=== PATIENT | female | born 1940 | race Caucasian/White ===

== ENCOUNTER → 2018-06-14 | Outpatient (CLI) | payer OTHER ==
[~2018-06-14] MED LIST: ASPI81EC; CONEST.3; GLUC500; MULVITMINF; PROACE100 PO
[2018-06-16 15:06] LABS: HPV 16 Negative (Negative); HPV 18 Negative (Negative); HPV OTHER HR TYPES Negative (Negative)
== END | disposition home or self-care (01) ==
LOC: LAB SHORT 17:38 → LAB 17:38
PROVIDERS: Obstetrics & Gynecology Gynecology
DX: Z12.72 Encounter for screening for malignant neoplasm of vagina (principal)
CPT/HCPCS: 87624; G0123

== ENCOUNTER → 2018-09-25 | Outpatient (CLI) | payer OTHER ==
[~2018-09-25] MED LIST changes: +ACET325 PO; +CIPR500 PO; +CLIMARA1 EACH; +CYCL10; +FLUT1DIS2; +LEVSOD50; +METR500 PO; +Pravachol40 MG
[2018-09-29 11:07] LABS: M-SPIKE, % Not Observed % (Not Observed); PROTEIN,TOTAL,URINE 4.7 mg/dL (Not Estab.)
== END | disposition home or self-care (01) ==
LOC: LAB 17:07 → LAB SHORT 17:07 → LAB FUT 09-20 14:05
PROVIDERS: Internal Medicine
DX: Z00.01 Encounter for general adult medical examination with abnormal findings (principal)
CPT/HCPCS: 81050; 84156; 84166

== ENCOUNTER 2018-10-07 13:26 | Inpatient (IN) | payer OTHER ==
[~2018-10-07] VITALS: Ht 165.1 cm; Wt 69.1 kg
[~2018-10-07 13:26] MED LIST changes: -ACET325 PO; -CIPR500 PO; -METR500 PO
--- NOTE | 2018-10-07 15:59 | NUR ---
CALL MADE TO FOR ORDERS CALL MADE TO DR. SARABIA FOR ORDERS AFTER PT ADMISSION.
[2018-10-07 17:20] LABS: BASOPHILS ABSOLUTE AUTO 0.04 K/mm3 (0.00-0.23); BASOPHILS PERCENT AUTO 0 % (0-2); EOSINOPHILS ABSOLUTE AUTO 0.05 K/mm3 (0.00-0.68); EOSINOPHILS PERCENT AUTO 0 % (0-6); Hematocrit 38.8 % (33.0-51.0); IMMATURE GRAN ABSOLUTE AUTO 0.04 K/mm3 (0.00-0.10); IMMATURE GRAN PERCENT AUTO 0 % (0-1); LYMPHOCYTES ABSOLUTE AUTO 3.17 K/mm3 (0.84-5.20); LYMPHOCYTES PERCENT AUTO 24 % (21-46); MONOCYTES ABSOLUTE AUTO 1.14 K/mm3 (0.16-1.47); MONOCYTES PERCENT AUTO 9 % (4-13); Mean Corpuscular HGB Conc 33.5 g/dL (31.5-36.5); Mean Corpuscular Volume 96 fL (80-100); NEUTROPHILS PERCENT AUTO 67 % (41-73); Platelet Count 250 K/mm3 (150-400); RDW Coefficient Variation 13.7 % (11.7-14.2); RDW Standard Deviation 48.4 fL (35.1-46.3); Red Blood Cell Count 4.06 M/mm3 (3.80-5.20); White Blood Cell Count 13.44 K/mm3 (4.00-11.30)
--- NOTE | 2018-10-07 17:28 | NUR ---
PT ADMITTED PT ADMITTED IN STABLE CONDITION WITH VSS. PT ORIENTED TO ROOM. CALL LIGHT IN REACH. IV STARTED. ANTIBIOTICS RUNNING. NO CHANGES IN ASSESSMENT AT THIS TIME. WILL CONTINUE TO MONITOR.
[2018-10-07 17:32] LABS: Alanine Aminotransfer (ALT/SGP 16 U/L (12-78); Albumin, Blood 3.1 g/dL (3.4-5.0); Albumin/Globulin Ratio 0.9 (0.8-1.8); Alk Phos 62 U/L (50-136); Anion Gap 5 mmol/L (6-16); Aspartate Aminotrans (AST/SGOT 22 U/L (12-37); Bilirubin, Total 0.8 mg/dL (0.1-1.0); Blood Urea Nitrogen 7 mg/dL (8-24); Bun/Creatinine Ratio 13.8 (12.0-20.0); CO2, Blood 29 mmol/L (21-32); Calcium, Blood 8.3 mg/dL (8.5-10.1); Chloride, Blood 104 mmol/L (98-108); Creatinine, Blood 0.51 mg/dL (0.40-1.00); Globulin, Blood 3.3 g/dL (2.2-4.0); Glomerular Filtration Rate >60 (60-); Glucose, Blood 104 mg/dL (70-99); Potassium, Blood 3.2 mmol/L (3.5-5.5); Sodium, Blood 138 mmol/L (136-145); Total Protein, Blood 6.4 g/dL (6.4-8.2)
--- NOTE | 2018-10-08 04:51 | NUR ---
SHIFT SUMMARY PT HAD UNEVENTFUL NIGHT. PT DID HAVE ONE EPISODE OF BLOOD PER RECTUM EARLY IN SHIFT. VERY SMALL AMOUNT UNMEASURED IN THE TOILET. NO FURTHER EPISODES FOLLOWING. PT REPORTED MINIMAL ABD PAIN THIS EVENING AT 2/10, MORE PAINFUL WITH PALPATION. DR. JOHNSON IN TO SEE PT THIS EVENING. NO NEW ORDERS TONIGHT. PT REMAINED NPO THROUGHOUT THE NIGHT EXCEPT SIPS OF WATER, ICE CHIPS, AND MEDICATIONS. VSS. OTHERWISE NO ACUTE CHANGES. WILL CONTINUE TO MONITOR.
[2018-10-08 05:09] LABS: BASOPHILS ABSOLUTE AUTO 0.05 K/mm3 (0.00-0.23); BASOPHILS PERCENT AUTO 1 % (0-2); EOSINOPHILS ABSOLUTE AUTO 0.17 K/mm3 (0.00-0.68); EOSINOPHILS PERCENT AUTO 2 % (0-6); Hemoglobin 12.1 g/dL (11.5-16.0); IMMATURE GRAN ABSOLUTE AUTO 0.05 K/mm3 (0.00-0.10); IMMATURE GRAN PERCENT AUTO 1 % (0-1); LYMPHOCYTES ABSOLUTE AUTO 3.07 K/mm3 (0.84-5.20); LYMPHOCYTES PERCENT AUTO 30 % (21-46); MONOCYTES ABSOLUTE AUTO 1.23 K/mm3 (0.16-1.47); MONOCYTES PERCENT AUTO 12 % (4-13); Mean Corpuscular HGB 31.6 pg (26.0-34.0); Mean Corpuscular HGB Conc 33.6 g/dL (31.5-36.5); Mean Corpuscular Volume 94 fL (80-100); Mean Platelet Volume 10.2 fL (9.1-12.4); NEUTROPHILS ABSOLUTE AUTO 5.78 K/mm3 (1.96-9.15); NEUTROPHILS PERCENT AUTO 56 % (41-73); Platelet Count 215 K/mm3 (150-400); RDW Coefficient Variation 13.6 % (11.7-14.2); RDW Standard Deviation 47.2 fL (35.1-46.3); Red Blood Cell Count 3.83 M/mm3 (3.80-5.20); White Blood Cell Count 10.35 K/mm3 (4.00-11.30)
[2018-10-08 05:32] LABS: Alanine Aminotransfer (ALT/SGP 12 U/L (12-78); Albumin, Blood 2.5 g/dL (3.4-5.0); Albumin/Globulin Ratio 0.8 (0.8-1.8); Alk Phos 54 U/L (50-136); Anion Gap 3 mmol/L (6-16); Aspartate Aminotrans (AST/SGOT 14 U/L (12-37); Bilirubin, Total 0.7 mg/dL (0.1-1.0); Blood Urea Nitrogen 4 mg/dL (8-24); Bun/Creatinine Ratio 7.9 (12.0-20.0); CO2, Blood 30 mmol/L (21-32); Calcium, Blood 7.9 mg/dL (8.5-10.1); Chloride, Blood 110 mmol/L (98-108); Creatinine, Blood 0.51 mg/dL (0.40-1.00); Glomerular Filtration Rate >60 (60-); Glucose, Blood 124 mg/dL (70-99); Potassium, Blood 2.9 mmol/L (3.5-5.5); Sodium, Blood 143 mmol/L (136-145); Total Protein, Blood 5.5 g/dL (6.4-8.2)
--- NOTE | 2018-10-08 08:29 | NUR ---
CLEANING UP VASCULAR ACCESS DOCUMENTATION. PATIENT HAS A 20G IN HER LFA FROM YESTERDAY. SHE SAYS SHE NEVER HAD ONE IN HER RFA, ONLY AN ATTEMPT AT ONE. I JUST STARTED A 20G IN HER LAC ALSO. SHE WILL NEED 2 SITES FOR PPN AND MULTIPLE ANTIBIOTICS.
--- NOTE | 2018-10-08 17:56 | NUR ---
SHIFT SUMMARY: PT HAS BEEN A/O X 4 THIS SHIFT WITH MILD TENDERNESS REPORTED TO ABDOMEN. PT REMAINS NPO. IV FLUIDS/ABO HAVE RAN WITH NO ISSUES NOTED. DR Griffin STARTED PT ON PPN WHICH WAS STARTED THIS EVENING AND PT APPEARS TO BE TOLERATING IT WELL. PT AND SON CAME TO VISIT THIS AFTERNOON. SHE IS NOW RESTING IN BED AND WAS REMINDED TO USE CALL LIGHT FOR HELP WHEN NEEDED SINCE SHE IS HOOKED UP TO THE 2 IV LINES AND SHE AGREED TO CALL FOR ASSIST WITHT TOILETING.
--- NOTE | 2018-10-09 04:25 | NUR ---
SUMMARY: PT A/OX4, SPECIFIES NEEDS AND PLEASANT/COOPERATIVE W/CARE. SHE REMAINS NPO X ICE/MEDS W/PPN INFUSING AND CBG'S STABLE. 2ND IV SITE HAS NS INFUSING AT TKO AND IV ABX WERE RECIEVED. SHE HAD TYLENOL PRN FOR TOLERABLE CONTROL OF ARTHRITIC PAIN AND DENIED ABDO DISCOMFORT OR OTHER S/S DISTRESS. PT HAD A BM THIS SHIFT W/O EVIDENCE OF ACTIVE BLEEDING. NO ACUTE CHANGES, VSS AND AFEBRILE. WCTM AND REPORT TO DAY RN.
[2018-10-09 04:59] LABS: Anion Gap 4 mmol/L (6-16); Blood Urea Nitrogen 7 mg/dL (8-24); Bun/Creatinine Ratio 15.9 (12.0-20.0); CO2, Blood 28 mmol/L (21-32); Calcium, Blood 8.1 mg/dL (8.5-10.1); Chloride, Blood 112 mmol/L (98-108); Creatinine, Blood 0.44 mg/dL (0.40-1.00); Glomerular Filtration Rate >60 (60-); Glucose, Blood 124 mg/dL (70-99); Magnesium, Blood 2.1 mg/dL (1.6-2.4); Phosphorus, Blood 2.2 mg/dL (2.5-4.9); Potassium, Blood 3.8 mmol/L (3.5-5.5); Sodium, Blood 144 mmol/L (136-145); Triglycerides 104 mg/dL (30-160)
[2018-10-09 07:01] LABS: BASOPHILS ABSOLUTE AUTO 0.05 K/mm3 (0.00-0.23); BASOPHILS PERCENT AUTO 1 % (0-2); EOSINOPHILS ABSOLUTE AUTO 0.24 K/mm3 (0.00-0.68); EOSINOPHILS PERCENT AUTO 3 % (0-6); Hematocrit 37.4 % (33.0-51.0); Hemoglobin 12.4 g/dL (11.5-16.0); IMMATURE GRAN ABSOLUTE AUTO 0.02 K/mm3 (0.00-0.10); IMMATURE GRAN PERCENT AUTO 0 % (0-1); LYMPHOCYTES ABSOLUTE AUTO 2.47 K/mm3 (0.84-5.20); LYMPHOCYTES PERCENT AUTO 28 % (21-46); MONOCYTES ABSOLUTE AUTO 1.01 K/mm3 (0.16-1.47); MONOCYTES PERCENT AUTO 11 % (4-13); Mean Corpuscular HGB 32.1 pg (26.0-34.0); Mean Corpuscular HGB Conc 33.2 g/dL (31.5-36.5); Mean Platelet Volume 10.9 fL (9.1-12.4); NEUTROPHILS ABSOLUTE AUTO 5.05 K/mm3 (1.96-9.15); NEUTROPHILS PERCENT AUTO 57 % (41-73); Platelet Count 240 K/mm3 (150-400); RDW Coefficient Variation 13.8 % (11.7-14.2); RDW Standard Deviation 49.3 fL (35.1-46.3); Red Blood Cell Count 3.86 M/mm3 (3.80-5.20); White Blood Cell Count 8.84 K/mm3 (4.00-11.30)
[2018-10-09 07:02] LABS: Mean Corpuscular Volume 97 fL (80-100)
--- NOTE | 2018-10-09 17:33 | NUR ---
SHIFT SUMMARY: PT IS A/O X 4 WITH NO C/O PAIN THIS SHIFT. SHE CONTINUES TO SELF AMBULATE TO THE TOILET AND WAS REMINDED TO ASK FOR HELP WITH THE IV POLE WHILE TRANSFERRING AND AGREED. PT CONTINUES ON IV PPN, FLUIDS AND ABO. A NEW PERIPHERAL LINE WAS STARTED ALONG WITH A POWERGLIDE BY RESOURCE RN. DR Griffin STARTED PT ON CLEAR LIQUIDS THIS AFTERNOON AND SO FAR IT HAS BEEN TOLERATED WELL. PT HAS HAD FAMILY AT BEDSIDE MOST OF THE AFTERNOON. PT IS ABLE TO MAKE HER NEEDS KNOWN AND CALLS FOR HELP APPROPRIATELY.
--- NOTE | 2018-10-10 04:29 | NUR ---
SUMMARY: PT A/OX4, CALLS APPROPRIATELY AND IS SBA TO TOILET D/T IV LINES. SHE HAS PPN INFUSING VIA RANDOLPH POWERGLIDE AND D5 W/NS INFUSING TO R.FA IV. IV ABX RECIEVED. PT HAS TOLERATED CLEAR LIQ'S AND DENIES ABDO PAIN/NAUSEA. SHE CONT'S TO HAVE SMALL LOOSE BM'S BUT NO EVIDENCE BLEEDING OBSERVED. PT WAS MEDICATED W/TYLENOL PRN X1 FOR TOLERABLE CONTROL OF ARTHRITIC PAIN AND DENIED COMPLAINTS OTHERWISE. NO ACUTE CHANGES, VSS/AFEBRILE. WCTM AND REPORT TO DAY RN.
[2018-10-10 05:32] LABS: BASOPHILS ABSOLUTE AUTO 0.04 K/mm3 (0.00-0.23); BASOPHILS PERCENT AUTO 0 % (0-2); EOSINOPHILS ABSOLUTE AUTO 0.33 K/mm3 (0.00-0.68); EOSINOPHILS PERCENT AUTO 3 % (0-6); Hematocrit 36.8 % (33.0-51.0); Hemoglobin 12.4 g/dL (11.5-16.0); IMMATURE GRAN ABSOLUTE AUTO 0.03 K/mm3 (0.00-0.10); IMMATURE GRAN PERCENT AUTO 0 % (0-1); LYMPHOCYTES ABSOLUTE AUTO 3.19 K/mm3 (0.84-5.20); LYMPHOCYTES PERCENT AUTO 32 % (21-46); MONOCYTES ABSOLUTE AUTO 1.25 K/mm3 (0.16-1.47); MONOCYTES PERCENT AUTO 13 % (4-13); Mean Corpuscular HGB 31.9 pg (26.0-34.0); Mean Corpuscular HGB Conc 33.7 g/dL (31.5-36.5); Mean Corpuscular Volume 95 fL (80-100); Mean Platelet Volume 10.2 fL (9.1-12.4); NEUTROPHILS ABSOLUTE AUTO 5.15 K/mm3 (1.96-9.15); NEUTROPHILS PERCENT AUTO 52 % (41-73); Platelet Count 247 K/mm3 (150-400); RDW Coefficient Variation 13.8 % (11.7-14.2); RDW Standard Deviation 48.1 fL (35.1-46.3); Red Blood Cell Count 3.89 M/mm3 (3.80-5.20); White Blood Cell Count 9.99 K/mm3 (4.00-11.30)
[2018-10-10 06:03] LABS: Anion Gap 4 mmol/L (6-16); Blood Urea Nitrogen 8 mg/dL (8-24); Bun/Creatinine Ratio 21.1 (12.0-20.0); CO2, Blood 27 mmol/L (21-32); Calcium, Blood 8.1 mg/dL (8.5-10.1); Chloride, Blood 112 mmol/L (98-108); Creatinine, Blood 0.38 mg/dL (0.40-1.00); Glomerular Filtration Rate >60 (60-); Glucose, Blood 107 mg/dL (70-99); Magnesium, Blood 1.9 mg/dL (1.6-2.4); Phosphorus, Blood 2.7 mg/dL (2.5-4.9); Potassium, Blood 3.7 mmol/L (3.5-5.5); Sodium, Blood 143 mmol/L (136-145)
[2018-10-10] MEDS ORDERED: ACET325 PO (10:28)
[2018-10-10] MEDS ORDERED: CIPR500 PO (10:29)
[2018-10-10] MEDS ORDERED: METR500 PO (10:30)
--- NOTE | 2018-10-10 11:39 | NUR ---
PT DCD HOME WITH AND SON. ALL MEDS AND INSTRUCTIONS REVIEWED WITH PT WHO VERBALIZED AN UNDERSTANDING. POWER GLIDE AND PERIPHERAL LINES WERE DCD WNL. PT TOOK ALL PERSONAL BELONGINGS WITH HER BUT FORGOT HER DC PACKET ON THE BED. PT WAS CALLED AND LEFT A MESSAGE THAT IT WILL BE AT THE [facility] DESK FOR HER TO TRAFFIC CONTROL FLAGGER. ALL MED ORDERS WERE FAXED TO [facility] PER PT REQUEST. PT STABLE UPON DC.
[2018-10-10 14:24] LABS: Adenovirus F 40/41 Not Detected (NOT DETECT); Astrovirus Not Detected (NOT DETECT); Campylobacter Sp Not Detected (NOT DETECT); Cryptosporidium Not Detected (NOT DETECT); Cyclospora Cayetanensis Not Detected (NOT DETECT); E. Coli O157 Not Detected (NOT DETECT); Entamoeba Histolytica Not Detected (NOT DETECT); Enteroaggregative E. coli-EAEC Not Detected (NOT DETECT); Enteropathogenic E. coli-EPEC Not Detected (NOT DETECT); Enterotoxigenic E. coli-ETEC Not Detected (NOT DETECT); Giardia Lamblia Not Detected (NOT DETECT); Norovirus GI/GII Not Detected (NOT DETECT); Plesiomonas Shigelloides Not Detected (NOT DETECT); Rotavirus A Not Detected (NOT DETECT); Salmonella Sp Not Detected (NOT DETECT); Sapovirus Not Detected (NOT DETECT); Shiga Toxin-prod E. coli-STEC Not Detected (NOT DETECT); Shigella/Enteroin E. coli-EIEC Not Detected (NOT DETECT); Vibrio Cholerae Not Detected (NOT DETECT); Vibrio Sp Not Detected (NOT DETECT); Yersinia Enterocolitica Not Detected (NOT DETECT)
== END 2018-10-10 11:34 | disposition home or self-care (01) | DRG 921 ==
LOC: CT 13:26 → MEDS 15:29 → ENPENDDIS 10-10 09:55 → MEDS 10-10 11:34
PROVIDERS: ADMIT Student in an Organized Health Care Education/Training Program
DX: K91.71 Accidental puncture and laceration of a digestive system organ or structure during a digestive system procedure (principal); K57.30 Diverticulosis of large intestine without perforation or abscess without bleeding; E78.5 Hyperlipidemia, unspecified; E03.9 Hypothyroidism, unspecified; G43.909 Migraine, unspecified, not intractable, without status migrainosus; M54.9 Dorsalgia, unspecified; G89.29 Other chronic pain; D72.829 Elevated white blood cell count, unspecified; E87.6 Hypokalemia; Z66 Do not resuscitate; Y83.8 Other surgical procedures as the cause of abnormal reaction of the patient, or of later complication, without mention of misadventure at the time of the procedure; Y73.0 Diagnostic and monitoring gastroenterology and urology devices associated with adverse incidents; Z79.82 Long term (current) use of aspirin; Z79.890 Hormone replacement therapy; Z79.899 Other long term (current) drug therapy; Z88.5 Allergy status to narcotic agent
CPT/HCPCS: 0097U; 36415; 74176; 74177; 80048; 80053; 82947; 83735; 84100; 84478; 85025; A9270; C1751; J0744; J2704; J7042; J7050; J7120; Q9967

== ENCOUNTER → 2021-08-17 | Outpatient (CLI) | payer OTHER ==
[~2021-08-17] MED LIST changes: +ACET325 PO; +CIPR500 PO; +METR500 PO
[2021-08-17 16:09] LABS: BASOPHILS ABSOLUTE AUTO 0.05 K/mm3 (0.00-0.23); BASOPHILS PERCENT AUTO 1 % (0-2); EOSINOPHILS PERCENT AUTO 1 % (0-6); Hematocrit 38.7 % (33.0-51.0); Hemoglobin 12.9 g/dL (11.5-16.0); IMMATURE GRAN ABSOLUTE AUTO 0.04 K/mm3 (0.00-0.10); IMMATURE GRAN PERCENT AUTO 0 % (0-1); LYMPHOCYTES ABSOLUTE AUTO 2.29 K/mm3 (0.84-5.20); LYMPHOCYTES PERCENT AUTO 21 % (21-46); MONOCYTES ABSOLUTE AUTO 1.34 K/mm3 (0.16-1.47); MONOCYTES PERCENT AUTO 12 % (4-13); Mean Corpuscular HGB 31.9 pg (26.0-34.0); Mean Corpuscular HGB Conc 33.3 g/dL (31.5-36.5); Mean Corpuscular Volume 96 fL (80-100); Mean Platelet Volume 10.1 fL (9.1-12.4); NEUTROPHILS ABSOLUTE AUTO 7.18 K/mm3 (1.96-9.15); NEUTROPHILS PERCENT AUTO 65 % (41-73); Platelet Count 271 K/mm3 (150-400); RDW Coefficient Variation 14.1 % (11.7-14.2); RDW Standard Deviation 50.1 fL (35.1-46.3); Red Blood Cell Count 4.05 M/mm3 (3.80-5.20)
[2021-08-17 16:18] LABS: Albumin/Globulin Ratio 0.8 (0.8-1.8); Bilirubin, Total 0.4 mg/dL (0.1-1.0); Calcium, Blood 8.9 mg/dL (8.5-10.1); Creatinine, Blood 0.6 mg/dL (0.40-1.00); Globulin, Blood 3.7 g/dL (2.2-4.0); Total Protein, Blood 6.7 g/dL (6.4-8.2)
== END ==
LOC: LAB SHORT 16:04
PROVIDERS: General Practice
DX: R05.1 Acute cough (principal)
CPT/HCPCS: 80053; 85025

== ENCOUNTER 2022-09-04 11:44 | Emergency (ER) | payer OTHER ==
[~2022-09-04] VITALS: Ht 165.1 cm; Wt 70.8 kg
[2022-09-04] MEDS ORDERED: DULOXETINE HCL60 M1 PO (12:02)
[2022-09-04] MEDS ORDERED: HYDROCODONE-AC1 EA19 PO (12:02)
[2022-09-04 12:32] LABS: BASOPHILS ABSOLUTE AUTO 0.05 K/mm3 (0.00-0.23); BASOPHILS PERCENT AUTO 1 % (0-2); EOSINOPHILS ABSOLUTE AUTO 0.22 K/mm3 (0.00-0.68); EOSINOPHILS PERCENT AUTO 3 % (0-6); Hematocrit 38.7 % (33.0-51.0); Hemoglobin 13.2 g/dL (11.5-16.0); IMMATURE GRAN ABSOLUTE AUTO 0.01 K/mm3 (0.00-0.10); IMMATURE GRAN PERCENT AUTO 0 % (0-1); LYMPHOCYTES PERCENT AUTO 43 % (21-46); MONOCYTES ABSOLUTE AUTO 0.95 K/mm3 (0.16-1.47); MONOCYTES PERCENT AUTO 12 % (4-13); Mean Corpuscular HGB 32.4 pg (26.0-34.0); Mean Corpuscular HGB Conc 34.1 g/dL (31.5-36.5); Mean Corpuscular Volume 95 fL (80-100); Mean Platelet Volume 9.5 fL (9.1-12.4); NEUTROPHILS ABSOLUTE AUTO 3.32 K/mm3 (1.96-9.15); NEUTROPHILS PERCENT AUTO 42 % (41-73); Platelet Count 234 K/mm3 (150-400); RDW Coefficient Variation 15.7 % (11.7-14.2); RDW Standard Deviation 54.9 fL (35.1-46.3); Red Blood Cell Count 4.08 M/mm3 (3.80-5.20); White Blood Cell Count 7.95 K/mm3 (4.00-11.30)
[2022-09-04 12:46] LABS: Albumin, Blood 3.1 g/dL (3.4-5.0); Bilirubin, Total 0.4 mg/dL (0.1-1.0); Bun/Creatinine Ratio 22.4 (12.0-20.0); Calcium, Blood 8.4 mg/dL (8.5-10.1); Creatinine, Blood 0.54 mg/dL (0.40-1.00); Globulin, Blood 3.1 g/dL (2.2-4.0); Potassium, Blood 3.8 mmol/L (3.5-5.5); Total Protein, Blood 6.2 g/dL (6.4-8.2)
[2022-09-04 14:00] VITALS: BP 157/84
== END 2022-09-04 14:30 | disposition home or self-care (01) ==
LOC: ER 11:44
PROVIDERS: Emergency Medicine
DX: S01.01XA Laceration without foreign body of scalp, initial encounter (principal); E78.5 Hyperlipidemia, unspecified; E03.9 Hypothyroidism, unspecified; W18.30XA Fall on same level, unspecified, initial encounter; Z79.890 Hormone replacement therapy; Z79.82 Long term (current) use of aspirin; Z88.5 Allergy status to narcotic agent
CPT/HCPCS: 12001; 70450; 72125; 80053; 85025; 90471; 90714; 90715; 93005; 93010; 99284-25; A9270

== ENCOUNTER 2022-12-24 09:20 | Inpatient (IN) | payer OTHER ==
[~2022-12-24] VITALS: Ht 162.6 cm; Wt 69.8 kg
[~2022-12-24 09:20] MED LIST changes: +DULOXETINE HCL60 M1 PO; +HYDROCODONE-AC1 EA19 PO; +PRAV20 PO; -Pravachol40 MG
[2022-12-24 09:44] LABS: Hematocrit 40.7 % (33.0-51.0); Hemoglobin 13.5 g/dL (11.5-16.0); Mean Corpuscular HGB 31.4 pg (26.0-34.0); Mean Corpuscular HGB Conc 33.2 g/dL (31.5-36.5); Mean Corpuscular Volume 95 fL (80-100); Mean Platelet Volume 9.8 fL (9.1-12.4); Platelet Count 277 K/mm3 (150-400); RDW Coefficient Variation 14.1 % (11.7-14.2); RDW Standard Deviation 49.1 fL (35.1-46.3); White Blood Cell Count 9.57 K/mm3 (4.00-11.30)
[2022-12-24 10:04] LABS: BASOPHILS PERCENT MAN 0 % (0-2); EOSINOPHILS ABSOLUTE MAN 0.28 K/mm3 (0.00-0.68); EOSINOPHILS PERCENT MAN 3 % (0-6); LYMPHOCYTES % ATYPICAL MANUAL 1 % (0-0); LYMPHOCYTES ABSOLUTE MAN 4.11 K/mm3 (0.84-5.20); LYMPHOCYTES PERCENT MAN 42 % (21-46); MONOCYTES ABSOLUTE MAN 0.86 K/mm3 (0.16-1.47); MONOCYTES PERCENT MAN 9 % (4-13); SEG NEUTROPHILS PERCENT MAN 45 % (41-73); TOTAL CELLS COUNTED 100
[2022-12-24 10:18] LABS: Bun/Creatinine Ratio 19.2 (12.0-20.0); Calcium, Blood 8.7 mg/dL (8.5-10.1); Creatinine, Blood 0.57 mg/dL (0.40-1.00); Potassium, Blood 3.7 mmol/L (3.5-5.5)
[2022-12-24] MEDS ORDERED: NAPROXEN500 MG PO (11:24)
[2022-12-24 15:23] VITALS: BP 128/67
--- NOTE | 2022-12-24 19:39 | NUR ---
SHIFT SUMMARY PAIN MANAGED WITH FENTANYL. PT HAS BEEN ALERT AND ORIENTED. PUREWICK IN PLACE. FAMILY PRESENT THIS EVENING FOR SUPPORT. REPORT GIVEN TO DARINEL RN, PT RESTING IN BED AND ASKING FOR PAIN MEDICATION AT TIME OF REPORT.
--- NOTE | 2022-12-24 19:41 | NUR ---
PT ARRIVED TO THE ROOM AT APPROXIMATELY 1520.
[2022-12-24 19:49] VITALS: BP 133/77
--- NOTE | 2022-12-24 19:50 | NUR ---
SHIFT SUMMARY PT IS AWAITING SURGERY TOMORROW. PAIN MANAGED WITH FENTANYL. NO CHANGES TO REPORT SINCE ARRIVAL TO THE ROOM.
[2022-12-25 03:53] VITALS: BP 147/71
[2022-12-25 04:51] LABS: BASOPHILS ABSOLUTE AUTO 0.05 K/mm3 (0.00-0.23); BASOPHILS PERCENT AUTO 1 % (0-2); EOSINOPHILS ABSOLUTE AUTO 0.21 K/mm3 (0.00-0.68); EOSINOPHILS PERCENT AUTO 2 % (0-6); Hematocrit 39.1 % (33.0-51.0); Hemoglobin 12.9 g/dL (11.5-16.0); IMMATURE GRAN ABSOLUTE AUTO 0.02 K/mm3 (0.00-0.10); IMMATURE GRAN PERCENT AUTO 0 % (0-1); LYMPHOCYTES ABSOLUTE AUTO 2.79 K/mm3 (0.84-5.20); LYMPHOCYTES PERCENT AUTO 26 % (21-46); MONOCYTES ABSOLUTE AUTO 1.21 K/mm3 (0.16-1.47); MONOCYTES PERCENT AUTO 11 % (4-13); Mean Corpuscular HGB 31.2 pg (26.0-34.0); Mean Corpuscular Volume 94 fL (80-100); Mean Platelet Volume 9.9 fL (9.1-12.4); NEUTROPHILS ABSOLUTE AUTO 6.61 K/mm3 (1.96-9.15); NEUTROPHILS PERCENT AUTO 61 % (41-73); Platelet Count 223 K/mm3 (150-400); RDW Coefficient Variation 14.2 % (11.7-14.2); RDW Standard Deviation 49.1 fL (35.1-46.3); Red Blood Cell Count 4.14 M/mm3 (3.80-5.20); White Blood Cell Count 10.89 K/mm3 (4.00-11.30)
[2022-12-25 05:38] LABS: Bun/Creatinine Ratio 18.3 (12.0-20.0); Calcium, Blood 8.7 mg/dL (8.5-10.1); Creatinine, Blood 0.76 mg/dL (0.40-1.00); Potassium, Blood 3.8 mmol/L (3.5-5.5)
--- NOTE | 2022-12-25 05:49 | NUR ---
SHIFT SUMMARY VSS. PT SLEPT ON AND OFF T/O THE NIGHT. LLE REMAINS SHORTENED AND EXTERNALLY ROTATED. PULSE AND SENSATION REMAINS INTACT. MEDICATED FOR PAIN WITH V FENT. REQUIRED AN EXTRA ONE TIME DOSE OF FENT AFTER REPOSITIONING. PURE WICK IN PLACE, LEAKED AND REQUIRED BED CHANGE. NO OTHER ACUTE EVENT SNOTED. WIPE DOWN COMPLETE. PLAN FOR SURGERY TODAY
[2022-12-25 07:32] VITALS: BP 140/67
[2022-12-25] MEDS ORDERED: HYDR1TAB94 PO (09:14)
[2022-12-25] MEDS ORDERED: GEMTESA75 MG PO (09:14)
[2022-12-25 14:53] VITALS: BP 145/79
--- NOTE | 2022-12-25 16:42 | NUR ---
SHIFT SUMMARY PT A&OX4, VSS/RA, LATESHA PO, VOIDING/PUREWICK, BEDREST/REPOSITIONS WITH ASSIST, PAIN MANAGED PER EMAR, 18G LFA/IVF AT 125 MLS/HR. PLAN FOR NPO MIDNIGHT AND SURGERY 799. REPORT PROVIDED TO AIDAN العلي.
--- NOTE | 2022-12-25 17:15 | NUR ---
THIS NURSE RECIEVED REPORT FROM LEONORA العلي. THIS NURSE IS NOW ASSUMING CARE.
[2022-12-25 19:26] VITALS: BP 123/71
[2022-12-26] VITALS (14 sets, daily range): BP systolic 125–156; BP diastolic 57–81
[2022-12-26 04:48] LABS: Hematocrit 38.7 % (33.0-51.0); Hemoglobin 12.9 g/dL (11.5-16.0); Mean Corpuscular HGB 31.5 pg (26.0-34.0); Mean Corpuscular HGB Conc 33.3 g/dL (31.5-36.5); Mean Corpuscular Volume 94 fL (80-100); Mean Platelet Volume 10.1 fL (9.1-12.4); Platelet Count 209 K/mm3 (150-400); RDW Coefficient Variation 14.4 % (11.7-14.2); RDW Standard Deviation 50.1 fL (35.1-46.3); White Blood Cell Count 11.15 K/mm3 (4.00-11.30)
[2022-12-26 05:14] LABS: Calcium, Blood 8.2 mg/dL (8.5-10.1); Creatinine, Blood 0.76 mg/dL (0.40-1.00); Potassium, Blood 4.1 mmol/L (3.5-5.5)
--- NOTE | 2022-12-26 06:03 | NUR ---
SHIFT SUMMARY PT IS HERE AFTER A GLF AND A RIGHT FEMORAL NECK FX. SHE HAS BEEN NPO SINCE MIDNIGHT FOR A PROCEDURE TODAY. PT'S VITAL SIGNS HAVE BEEN STABLE THROUGHOUT THE SHIFT AND THE PT HAS BEEN RESTING COMFORTABLY FOR MOST OF THE SHIFT. PT DID COMPLAIN OF PAIN ALONG WITH SHAKING LATER IN THE SHIFT. PT'S PAIN MEDICATED PER EMAR.
--- NOTE | 2022-12-26 19:21 | NUR ---
SHIFT SUMMARY POD0 R PETRA, A/OX4, VSS, TOLERATIN PO, PAIN WELL MANAGED, AMBULATING USING FWW/GB WITH MINIMAL SBA, SPINAL ANESTHESIA AND HAS REGAINED FULL BASELINE SENSATION, ABLE TO VOID POST OP. NO ACUTE EVENTS THIS SHIFT, CALL LIGHT IN REACH.
[2022-12-27 00:03] VITALS: BP 114/63
[2022-12-27 04:06] VITALS: BP 119/58
[2022-12-27 05:15] LABS: BASOPHILS ABSOLUTE AUTO 0.05 K/mm3 (0.00-0.23); BASOPHILS PERCENT AUTO 0 % (0-2); EOSINOPHILS ABSOLUTE AUTO 0.37 K/mm3 (0.00-0.68); EOSINOPHILS PERCENT AUTO 3 % (0-6); Hematocrit 34.5 % (33.0-51.0); Hemoglobin 11.6 g/dL (11.5-16.0); IMMATURE GRAN ABSOLUTE AUTO 0.04 K/mm3 (0.00-0.10); IMMATURE GRAN PERCENT AUTO 0 % (0-1); LYMPHOCYTES ABSOLUTE AUTO 2.39 K/mm3 (0.84-5.20); LYMPHOCYTES PERCENT AUTO 20 % (21-46); MONOCYTES ABSOLUTE AUTO 1.44 K/mm3 (0.16-1.47); MONOCYTES PERCENT AUTO 12 % (4-13); Mean Corpuscular HGB 31.4 pg (26.0-34.0); Mean Corpuscular HGB Conc 33.6 g/dL (31.5-36.5); Mean Corpuscular Volume 93 fL (80-100); Mean Platelet Volume 10.4 fL (9.1-12.4); NEUTROPHILS ABSOLUTE AUTO 7.72 K/mm3 (1.96-9.15); NEUTROPHILS PERCENT AUTO 64 % (41-73); Platelet Count 190 K/mm3 (150-400); RDW Coefficient Variation 14.1 % (11.7-14.2); RDW Standard Deviation 47.9 fL (35.1-46.3); White Blood Cell Count 12.01 K/mm3 (4.00-11.30)
[2022-12-27 05:44] LABS: Albumin, Blood 2.3 g/dL (3.4-5.0); Albumin/Globulin Ratio 0.7 (0.8-1.8); Bilirubin, Total 0.5 mg/dL (0.1-1.0); Calcium, Blood 8.1 mg/dL (8.5-10.1); Creatinine, Blood 0.64 mg/dL (0.40-1.00); Globulin, Blood 3.3 g/dL (2.2-4.0); Potassium, Blood 4.2 mmol/L (3.5-5.5); Total Protein, Blood 5.6 g/dL (6.4-8.2)
--- NOTE | 2022-12-27 06:07 | NUR ---
SHIFT SUMMARY PT IS POD#1 FROM A RIGHT TOTAL HIP ARTHROPLASTY. POST-OP ASSESSMENT OF THE SURGICAL SITE HAS LOOKED GOOD THROUGHOUT THE SHIFT AND IS C/D/I. PT MOVED WELL WITH BEING A STAND AND PIVOT FROM THE CHAIR AT SHIFT CHANGE YESTERDAY TO THE BSC AND THEN TO BED. PT DID COMPLAIN OF PAIN DURING THE NIGHT AFTER ALREADY RECEIVING SOME PAIN MEDICATION. THIS RN CALLED DR. MORRISON TO ASK FOR SOMETHING ELSE FOR MANAGING THE PT'S PAIN AND THE MD ORDERED 15 MG OR TORADOL. PT'S PAIN WAS MANAGEABLE AFTER BOTH PO AND IV MEDICATIONS WERE GIVEN. NO OTHER ACUTE EVENTS NOTED THROUGHOUT THE SHIFT. BED IS IN LOWEST POSITION, CALL LIGHT IS WITHIN REACH.
[2022-12-27 08:04] VITALS: BP 122/62
[2022-12-27] MEDS ORDERED: Percocet 5-3251 EACH PO (14:48)
--- NOTE | 2022-12-27 16:07 | NUR ---
DISCHARGE SUMMARY POD1 R PETRA, A/OX4, VSS, TOLERATING PO, CLEARED BY THERAPY TO GO HOME, IV ACCESS REMOVED PRIOR TO DEPARTURE. DISCUSSED DISCHARGE INFORMATION WITH HER INCLUDING HOME CARE, MEDICATIONS, AND FOLLOW UP APPOINTMENTS. NO QUESTIONS AT THIS TIME, PT ESCORTED OUT VIA WC TO PRIVATE AUT[employer] TO GO HOME.
== END 2022-12-27 15:52 | disposition home or self-care (01) | DRG 522 ==
LOC: ER 09:20 → SURS 11:57
PROVIDERS: Emergency Medicine; Family Medicine; Orthopaedic Surgery; ADMIT Internal Medicine
PROC: 0SR904A Replacement of Right Hip Joint with Ceramic on Polyethylene Synthetic Substitute, Uncemented, Open Approach (ICD-10-PCS; principal; 2022-12-26 08:00)
DX: S72.011A Unspecified intracapsular fracture of right femur, initial encounter for closed fracture (principal); I47.10 Supraventricular tachycardia, unspecified; W18.30XA Fall on same level, unspecified, initial encounter; Z66 Do not resuscitate; E03.9 Hypothyroidism, unspecified; S00.01XA Abrasion of scalp, initial encounter; E78.5 Hyperlipidemia, unspecified; G43.909 Migraine, unspecified, not intractable, without status migrainosus; M19.90 Unspecified osteoarthritis, unspecified site; E78.00 Pure hypercholesterolemia, unspecified; J45.909 Unspecified asthma, uncomplicated; M85.80 Other specified disorders of bone density and structure, unspecified site; Z90.710 Acquired absence of both cervix and uterus; Z90.722 Acquired absence of ovaries, bilateral; Z90.79 Acquired absence of other genital organ(s); Z79.891 Long term (current) use of opiate analgesic; Z79.899 Other long term (current) drug therapy; Z79.82 Long term (current) use of aspirin; Z79.890 Hormone replacement therapy; Z87.19 Personal history of other diseases of the digestive system; Z96.659 Presence of unspecified artificial knee joint; Z98.890 Other specified postprocedural states; Z88.5 Allergy status to narcotic agent
CPT/HCPCS: 36415; 73501; 73502; 80048; 80053; 85025; 85027; 93005; 93010; 94760; 96374; 96375; 96376; 97110; 97161; 99285-25; A9270; C1713; C1776; J0171; J0690; J0735; J1100; J1650; J1885; J2250; J2270; J2405; J2704; J2795; J3010; J7120

== ENCOUNTER 2022-12-29 15:57 | Inpatient (IN) | payer OTHER ==
[~2022-12-29] VITALS: Ht 165.1 cm; Wt 76.0 kg
[~2022-12-29 15:57] MED LIST changes: +GEMTESA75 MG PO; +HYDR1TAB94 PO; +NAPROXEN500 MG PO; +Percocet 5-3251 EACH PO
[2022-12-29 16:40] LABS: BASOPHILS ABSOLUTE AUTO 0.02 K/mm3 (0.00-0.23); BASOPHILS PERCENT AUTO 0 % (0-2); EOSINOPHILS ABSOLUTE AUTO 0.11 K/mm3 (0.00-0.68); EOSINOPHILS PERCENT AUTO 1 % (0-6); Hematocrit 32.4 % (33.0-51.0); IMMATURE GRAN ABSOLUTE AUTO 0.04 K/mm3 (0.00-0.10); IMMATURE GRAN PERCENT AUTO 0 % (0-1); LYMPHOCYTES ABSOLUTE AUTO 1.28 K/mm3 (0.84-5.20); LYMPHOCYTES PERCENT AUTO 9 % (21-46); MONOCYTES ABSOLUTE AUTO 0.97 K/mm3 (0.16-1.47); MONOCYTES PERCENT AUTO 7 % (4-13); Mean Corpuscular HGB 31.3 pg (26.0-34.0); Mean Corpuscular Volume 92 fL (80-100); Mean Platelet Volume 10.3 fL (9.1-12.4); NEUTROPHILS ABSOLUTE AUTO 11.57 K/mm3 (1.96-9.15); NEUTROPHILS PERCENT AUTO 83 % (41-73); Platelet Count 245 K/mm3 (150-400); RDW Coefficient Variation 14.5 % (11.7-14.2); RDW Standard Deviation 49.1 fL (35.1-46.3); Red Blood Cell Count 3.51 M/mm3 (3.80-5.20); White Blood Cell Count 13.99 K/mm3 (4.00-11.30)
[2022-12-29 17:00] LABS: Albumin, Blood 2.3 g/dL (3.4-5.0); Albumin/Globulin Ratio 0.6 (0.8-1.8); Bilirubin, Total 0.7 mg/dL (0.1-1.0); Bun/Creatinine Ratio 22.4 (12.0-20.0); Calcium, Blood 8.4 mg/dL (8.5-10.1); Creatinine, Blood 0.67 mg/dL (0.40-1.00); Globulin, Blood 3.8 g/dL (2.2-4.0); Potassium, Blood 4.4 mmol/L (3.5-5.5); Total Protein, Blood 6.1 g/dL (6.4-8.2)
[2022-12-29 19:12] LABS: International Normalized Ratio 0.94; Prothrombin Time Results 9.9 Sec (9.7-11.5)
[2022-12-29 19:29] LABS: Anti-Xa UFH, PHA Monitoring <0.10 IU/mL
[2022-12-29 20:53] VITALS: BP 109/61
--- NOTE | 2022-12-29 22:24 | NUR ---
TRANSFER NOTE THIS RN RECEIVED REPORT FROM REGAN العلي IN THE ED. PT TRANSFERRED TO PCU AT 210. PT A&O X4. ABLE TO MAKE NEEDS KNOWN. BP STABLE. SR ON MONITOR WITH HR 60'S. ON 3L VIA NC WITH SPO2 >90%. PT 1-2P ASSIST W FWW TO BSC. HEP GTT INFUSING PER EMAR. BED IN LOWEST POSITION AND CALL LIGHT WITHIN REACH.
[2022-12-29 23:45] VITALS: BP 98/53
[2022-12-30 03:40] VITALS: BP 105/56
[2022-12-30 04:18] LABS: Hematocrit 30.6 % (33.0-51.0); Hemoglobin 10.2 g/dL (11.5-16.0); Mean Corpuscular HGB Conc 33.3 g/dL (31.5-36.5); Mean Corpuscular Volume 93 fL (80-100); Mean Platelet Volume 10.3 fL (9.1-12.4); NRBC ABSOLUTE 0.03 K/mm3 (0.00-0.02); NRBC Auto 0.2 /100 WBC (0.0-0.2); Platelet Count 256 K/mm3 (150-400); RDW Coefficient Variation 14.6 % (11.7-14.2); RDW Standard Deviation 50.2 fL (35.1-46.3); Red Blood Cell Count 3.29 M/mm3 (3.80-5.20); White Blood Cell Count 16.87 K/mm3 (4.00-11.30)
--- NOTE | 2022-12-30 04:24 | NUR ---
SHIFT SUMMARY NO ACUTE CHANGES OVERNIGHT. PT NOTES OCCASIONAL SHARP CHEST PAIN WHEN TAKING DEEP BREATHS. ON 2-3L VIA NC TO MAINTAIN SPO2 >90%. BP STABLE. SR ON MONITOR. HEP GTT INFUSING PER EMAR. NO CHANGES TO NEURO. ABLE TO MAKE NEEDS KNOWN. BED IN LOWEST POSITION AND CALL LIGHT WITHIN REACH. THIS RN WILL REPORT TO ONCOMING DAYSHIFT RN.
[2022-12-30 08:09] VITALS: BP 98/51
--- NOTE | 2022-12-30 15:54 | NUR ---
TRANSFER TO MEDICAL PT A&O X4. VSS. SPO2 > 92% ON 2-3L NC THIS SHIFT. TELEMETRY SHOWING NSR, HR 60s-70s PRIOR TO TELEMETRY DC. HEPARIN GTT DCd THIS AM, PT TRANSITIONED TO PO XARELTO PER ORDERS. PT W/ SURGICAL INCISION TO R HIP. COOL/ICE PAD OBTAINED FOR PLACEMENT TO SITE. REPORT GIVEN TO ACCEPTING MEDICAL FLOOR RN. PT TAKEN TO RM 303 BY manager power IN WHEELCHAIR W/ BELONGINGS & FAMILY PRESENT @ APPROX 1540.
[2022-12-30 16:31] VITALS: BP 112/57
--- NOTE | 2022-12-30 20:09 | NUR ---
SHIFT SUMMARY- PT TRANSFERED TO MEDICAL FLOOR FROM PCU. ICE MACHINE ARRIVED JUST AFTER SHE DID AND HAS NOT YET BEEN SET UP. PT IN BED, CALL LIGHT INREACH NO S&S OF DISTRESS AT THIS TIME. BEDSIDE REPORT COMPLETED WITH NIGHT RN.
[2022-12-30 20:14] VITALS: BP 98/62
[2022-12-31 04:23] VITALS: BP 101/79
[2022-12-31 07:42] VITALS: BP 99/55
--- NOTE | 2022-12-31 07:44 | NUR ---
SHIFT SUMMARY A/OX4. 2L NC. RECENT RIGHT HIP ARTHROPLASTY, ICE MACHINE FOR COLD THERAPY IN ROOM AND SET UP. USED INTERMITTENTLY LAST NIGHT. BILATERAL PE'S ON ELIQUIS BID. AMBULATES 1 PERSON WITH FWW TO TOILET. ABLE TO MAKE NEEDS KNOWN, CALL LIGHT IN REACH. BED LOCKED IN LOW POSITION.
[2022-12-31] MEDS ORDERED: XARELTO20 MG PO (10:40)
[2022-12-31] MEDS ORDERED: HYDR1TAB94 PO (10:40)
[2022-12-31] MEDS ORDERED: SENN187 PO (10:41)
[2022-12-31 15:05] VITALS: BP 115/62
--- NOTE | 2022-12-31 18:32 | NUR ---
DISCHARGE NOTE- PT AND FAMILY WERE GIVEN VERBAL AND WRITTEN DISCHARGE INSTRUCTIONS AND ACKNOWLEDGED UNDERSTANDING OF THEM. PT AND FAMILY STATED THEY HAD ENOUGH PAIN MEDICINE AT HOME AND DECLINED TO TAKE THE HARD COPY SCRIPT MD PROVIDED. PT WAS ASSISTED TO GET DRESSED AND ESCORTED OUT VIA WC BY THE FOUR [employer]UB AGENT. IV DC'D PRIOR TO DISCHARGE.
== END 2022-12-31 17:55 | disposition home or self-care (01) | DRG 175 ==
LOC: ER 15:57 → PCU 19:16 → MEDS 12-30 15:40
PROVIDERS: Emergency Medicine; Student in an Organized Health Care Education/Training Program; ADMIT Internal Medicine
DX: I26.94 Multiple subsegmental thrombotic pulmonary emboli without acute cor pulmonale (principal); J96.01 Acute respiratory failure with hypoxia; S72.91XA Unspecified fracture of right femur, initial encounter for closed fracture; G43.909 Migraine, unspecified, not intractable, without status migrainosus; M19.90 Unspecified osteoarthritis, unspecified site; E78.00 Pure hypercholesterolemia, unspecified; J45.909 Unspecified asthma, uncomplicated; E03.9 Hypothyroidism, unspecified; E78.5 Hyperlipidemia, unspecified; Z66 Do not resuscitate; M85.80 Other specified disorders of bone density and structure, unspecified site; Z87.19 Personal history of other diseases of the digestive system; Z90.710 Acquired absence of both cervix and uterus; Z98.890 Other specified postprocedural states; Z90.722 Acquired absence of ovaries, bilateral; Z90.79 Acquired absence of other genital organ(s); Z96.659 Presence of unspecified artificial knee joint; Z79.890 Hormone replacement therapy; Z88.5 Allergy status to narcotic agent; Z79.891 Long term (current) use of opiate analgesic; Z79.899 Other long term (current) drug therapy; X58.XXXA Exposure to other specified factors, initial encounter
CPT/HCPCS: 71045; 71260; 80053; 84484; 85025; 85027; 85520; 85610; 85730; 93005; 93010; 93306; 94761; 96374; 96375; 99285-25; A9270; J1644; J3010; Q9967

== ENCOUNTER 2023-01-13 07:30 | Observation (INO) | payer OTHER ==
[~2023-01-13] VITALS: Ht 165.1 cm; Wt 73.4 kg
[~2023-01-13 07:30] MED LIST changes: +SENN187 PO; +XARELTO20 MG PO
[2023-01-13 08:22] LABS: BASOPHILS ABSOLUTE AUTO 0.07 K/mm3 (0.00-0.23); BASOPHILS PERCENT AUTO 1 % (0-2); EOSINOPHILS ABSOLUTE AUTO 0.21 K/mm3 (0.00-0.68); EOSINOPHILS PERCENT AUTO 2 % (0-6); Hemoglobin 10.3 g/dL (11.5-16.0); IMMATURE GRAN ABSOLUTE AUTO 0.06 K/mm3 (0.00-0.10); IMMATURE GRAN PERCENT AUTO 1 % (0-1); LYMPHOCYTES ABSOLUTE AUTO 1.94 K/mm3 (0.84-5.20); LYMPHOCYTES PERCENT AUTO 16 % (21-46); MONOCYTES ABSOLUTE AUTO 1.01 K/mm3 (0.16-1.47); MONOCYTES PERCENT AUTO 8 % (4-13); Mean Corpuscular HGB 30.2 pg (26.0-34.0); Mean Corpuscular HGB Conc 32.2 g/dL (31.5-36.5); Mean Corpuscular Volume 94 fL (80-100); Mean Platelet Volume 9.3 fL (9.1-12.4); NEUTROPHILS ABSOLUTE AUTO 9.24 K/mm3 (1.96-9.15); NEUTROPHILS PERCENT AUTO 74 % (41-73); Platelet Count 529 K/mm3 (150-400); RDW Coefficient Variation 15.2 % (11.7-14.2); RDW Standard Deviation 52.1 fL (35.1-46.3); Red Blood Cell Count 3.41 M/mm3 (3.80-5.20); White Blood Cell Count 12.53 K/mm3 (4.00-11.30)
[2023-01-13 08:35] LABS: Albumin, Blood 2.4 g/dL (3.4-5.0); Albumin/Globulin Ratio 0.6 (0.8-1.8); Bilirubin, Total 0.4 mg/dL (0.1-1.0); Bun/Creatinine Ratio 21.1 (12.0-20.0); Calcium, Blood 8.6 mg/dL (8.5-10.1); Creatinine, Blood 0.48 mg/dL (0.40-1.00); Globulin, Blood 3.8 g/dL (2.2-4.0); Potassium, Blood 4.3 mmol/L (3.5-5.5); Total Protein, Blood 6.2 g/dL (6.4-8.2)
[2023-01-13 10:16] LABS: Influenza A, PCR NEGATIVE (NEGATIVE); Influenza B, PCR NEGATIVE (NEGATIVE); Resp Syncytial Virus, PCR NEGATIVE (NEGATIVE); SARS-Cov-2 (COVID-19) PCR, MMC NEGATIVE (NEGATIVE)
[2023-01-13 11:52] LABS: Free Thyroxine 1.26 ng/dL (0.70-1.60); Thyroid Stimulating Hormone 3.41 uIU/mL (0.360-4.800)
[2023-01-13 16:17] VITALS: BP 115/69
--- NOTE | 2023-01-13 16:25 | NUR ---
PCU ADMIT PT BROUGHT TO ROOM PCU 3 BY IRLANDA FROM ER AT APPROX 1600. PT AOX4. VSS. CARDIZEM DRIP AT 10ML/HR PT NOTED TO BE SINUS PAYTON TO SINUS RHYTHM W/ PACs HR 50S-70S UPON ARRIVAL. CARDIZEM PLACED ON STANDBY.
--- NOTE | 2023-01-13 18:13 | NUR ---
END OF SHIFT PT CONTINUES TO BE A&O X4, PLEASANT & COOPERATIVE. VSS. MONITOR SHOWING SB-SR, HR 50s-70s. SPO2 > 92% ON RA. PT REPORTS RECENT R HIP REPLACEMENT. SURGICAL SITE ALMOST FULLY HEALED, SITE APPEARS WNL. PT 1 PERSON ASSIST W/ FWW. NS GTT INFUSING PER EMAR.
[2023-01-13 21:09] VITALS: BP 104/56
[2023-01-13 23:43] VITALS: BP 104/55
[2023-01-14 03:45] VITALS: BP 114/59
[2023-01-14 03:47] LABS: BASOPHILS ABSOLUTE AUTO 0.07 K/mm3 (0.00-0.23); BASOPHILS PERCENT AUTO 1 % (0-2); EOSINOPHILS ABSOLUTE AUTO 0.28 K/mm3 (0.00-0.68); EOSINOPHILS PERCENT AUTO 3 % (0-6); Hematocrit 28.7 % (33.0-51.0); Hemoglobin 9.5 g/dL (11.5-16.0); IMMATURE GRAN ABSOLUTE AUTO 0.03 K/mm3 (0.00-0.10); IMMATURE GRAN PERCENT AUTO 0 % (0-1); LYMPHOCYTES ABSOLUTE AUTO 2.85 K/mm3 (0.84-5.20); LYMPHOCYTES PERCENT AUTO 26 % (21-46); MONOCYTES ABSOLUTE AUTO 1.16 K/mm3 (0.16-1.47); MONOCYTES PERCENT AUTO 11 % (4-13); Mean Corpuscular HGB 30.7 pg (26.0-34.0); Mean Corpuscular HGB Conc 33.1 g/dL (31.5-36.5); Mean Corpuscular Volume 93 fL (80-100); Mean Platelet Volume 9.2 fL (9.1-12.4); NEUTROPHILS ABSOLUTE AUTO 6.43 K/mm3 (1.96-9.15); NEUTROPHILS PERCENT AUTO 60 % (41-73); Platelet Count 500 K/mm3 (150-400); RDW Coefficient Variation 15.3 % (11.7-14.2); RDW Standard Deviation 51.5 fL (35.1-46.3); Red Blood Cell Count 3.09 M/mm3 (3.80-5.20); White Blood Cell Count 10.82 K/mm3 (4.00-11.30)
[2023-01-14 06:16] LABS: Albumin, Blood 2.3 g/dL (3.4-5.0); Albumin/Globulin Ratio 0.7 (0.8-1.8); Bilirubin, Total 0.3 mg/dL (0.1-1.0); Bun/Creatinine Ratio 27.7 (12.0-20.0); Calcium, Blood 8.4 mg/dL (8.5-10.1); Creatinine, Blood 0.61 mg/dL (0.40-1.00); Globulin, Blood 3.3 g/dL (2.2-4.0); Potassium, Blood 3.7 mmol/L (3.5-5.5); Total Protein, Blood 5.6 g/dL (6.4-8.2)
--- NOTE | 2023-01-14 06:23 | NUR ---
SHIFT SUMMARY PATIENT ALERT AND ORIENTED X4. HAD NO COMPLAINTS OF PAIN OR SHORTNESS OF BREATH. REMAINED ON ROOM AIR OVERNIGHT WITH SPO2 >90. VITAL SIGNS STABLE, SINUS RHYTHM IN THE 70'S ON TELE. CONDUCTED ORTHOSTATIC VITAL SIGNS THIS MORNING. NO ACUTE ISSUES NOTED OVERNIGHT. WILL CONTINUE TO MONITOR. CALL LIGHT WITHIN REACH.
[2023-01-14 07:39] VITALS: BP 117/57
[2023-01-14] MEDS ORDERED: METO25ER PO (10:21)
== END 2023-01-14 10:40 | disposition home or self-care (01) ==
LOC: ER 07:30 → PCU 07:31
PROVIDERS: Family Medicine; Student in an Organized Health Care Education/Training Program; ADMIT Internal Medicine
DX: I48.91 Unspecified atrial fibrillation (principal); I95.9 Hypotension, unspecified; G43.909 Migraine, unspecified, not intractable, without status migrainosus; M19.90 Unspecified osteoarthritis, unspecified site; J45.909 Unspecified asthma, uncomplicated; E03.9 Hypothyroidism, unspecified; E78.5 Hyperlipidemia, unspecified; K21.9 Gastro-esophageal reflux disease without esophagitis; Z88.5 Allergy status to narcotic agent; Z79.899 Other long term (current) drug therapy
CPT/HCPCS: 0241U; 36415; 71045; 80053; 83735; 84439; 84443; 85025; 93005; 93010; 93306; 96365; 96366; 96367; 96375; 96376; 99285-25; A9270; G0378; J3475; J7030